=== PATIENT | female | born 1985 | race Caucasian/White ===

== ENCOUNTER 2022-03-12 16:42 | Outpatient (CLI) | payer SELFPAY ==
[2022-03-12 17:02] VITALS: BP 116/72; PULSE 108; PULSE 113; PULSE 114; TEMP 36.8; O2SAT 98
[2022-03-12 17:13] VITALS: BMI 26.6
--- NOTE | 2022-03-12 19:39 | OB.TRI.HP_ITS ---
HPI - General General Date of Admission: 03/12/22 Date of Service: 03/12/22 HPI Narrative DAVID SAUCEDO, is a 36 F who presents with vaginal spotting. 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 Vaginal spotting when she went to the bathroom and wiped. No bleeding since. NST reactive. Cervix with no signs of labor. Okay to discharge home
== END 2022-03-12 18:25 | disposition home or self-care (01) ==
LOC: WPOUT 16:49 → WP 16:49
PROVIDERS: Visit Provider Obstetrics & Gynecology
DX: O26.859 Spotting complicating pregnancy, unspecified trimester (principal); O09.30 Supervision of pregnancy with insufficient antenatal care, unspecified trimester; Z3A.00 Weeks of gestation of pregnancy not specified
CPT/HCPCS: 59025; 59050; 99218; G0378

== ENCOUNTER 2023-07-05 12:40 | Emergency (ER) | payer OTHER, SELFPAY ==
[2023-07-05 12:41] VITALS: BP 122/83; PULSE 98; RESP 14; TEMP 36.3; O2SAT 100; BMI 22.8
--- NOTE | 2023-07-05 13:37 | ED.VIS.FEGU ---
HPI HPI - Female History of Present Illness Chief Complaint: Vag Bld, Preg Informant: patient Bleeding Issue: Positive for Vaginal bleeding and Passing clots (Small) Onset: Weeks (2) Context: Gradual Onset Timing: Intermittent Current Severity: Spotting Maximum Severity: Spotting Associated Symptoms Associated Symptoms: Negative for Dysuria, Frequency or Hematuria Test: Positive Narrative Narrative: Patient presents with vaginal spotting that has been intermittent over the past 1-1/2 to 2 weeks. Patient states that she had passed some small clots. Patient states she contacted her kiln labourer who told her that that was normal. Patient states that she took a test this morning that was positive. Patient states she then came to the emergency department. Patient denies any pain. Patient denies any vaginal discharge. Patient denies any urinary complaints. PFSH PFSH Medical History no medical history no medical history Home Medications multivitamin 1 tablet PO.IVFORM DAILY supplement 03/12/22 [History Last Taken Unknown] Allergy/AdvReac Type Severity Reaction Status Date / Time Penicillins Allergy PT UNSURE Verified 07/05/23 12:43 OF REACTION Surgical History no surgical history no surgical history Social History Smoking Status: Never smoker ROS ROS ED Constitutional Constitutional ED: Denies chills or fever(s) Eyes Eyes: Denies blurry vision or change in vision ENT ENT ED: Denies rhinorrhea or sore throat Cardiovascular Cardiovascular: Denies chest pain or palpitations Respiratory/Chest Respiratory/Chest: Denies cough or dyspnea Gastrointestinal Gastrointestinal: Denies nausea or vomiting Genitourinary Genitourinary ED: Denies dysuria or hematuria Musculoskeletal Musculoskeletal: Denies back pain or neck pain Integumentary Denies abscess or rash Neurologic Neurologic: Denies headache(s) or weakness Allergic/Immunologic Allergic/Immunologic ED: Denies mouth swelling or urticaria EXAM Physical Exam Const Vital Signs: 07/05/23 12:41 Temperature 97.4 F L Temperature Source Temporal Pulse Rate 98 Respiratory Rate 14 Blood Pressure 122/83 H Blood Pressure Mean 96 Pulse Ox 100 Oxygen Delivery Method Room Air Positive well nourished and well developed General Appearance ED: well developed HEENT Reports moist mucous membranes Neck supple and no JVD Resp normal respiratory effort and clear to auscultation bilaterally Cardio regular rate and regular rhythm GI normal to inspection, nondistended, normoactive bowel sounds and non-tender Palpation: soft Extremity normal to inspection General Extremety ED: Negative for edema or tenderness General Extremity: Negative for edema Neuro oriented x3, CN's II-XII intact bilaterally and no sensory deficits noted Sensorium / Orientation: alert Motor Exam: strength 5/5 throughout Psych mental status grossly normal Skin no rashes or lesions noted MDM MDM MDM Narrative Medical decision making narrative: Differential diagnosis includes metrorrhagia, dysfunctional uterine bleeding, , ectopic , and urinary tract infection. CBC will be obtained to assess for leukocytosis and anemia. Basic metabolic profile will be obtained to assess for electrolyte abnormality and renal function. Urinalysis will be obtained to assess for urinary tract infection. Quantitative hCG will be obtained to assess for . Lab Data Attestation: I reviewed the patient's lab results. Lab results narrative: BC was reviewed and was within normal limits. Basic metabolic profile was reviewed and was within normal limits urinalysis was reviewed. There is no evidence of urinary tract infection. Occult blood was 250 with 25-50 red blood cells. Quantitative hCG was reviewed and was 7323. Labs: Laboratory Results - last 24 hr 07/05/23 07/05/23 13:53 14:10 WBC 4.3 L RBC 4.61 Hgb 13.8 Hct 42.1 MCV 91.3 MCH 29.9 MCHC 32.8 RDW Std Deviation 44.2 H RDW Coeff of Thaddeus 13.1 Plt Count 249 MPV 9.9 Immature Gran % (Auto) 0.200 Neut % (Auto) 72.5 H Lymph % (Auto) 20.2 [place] % (Auto) 5.9 Eos % (Auto) 0.7 Baso % (Auto) 0.5 Absolute Neuts (auto) 3.1 Absolute Lymphs (auto) 0.86 Nucleated RBC % 0 Sodium 138 Potassium 3.5 Chloride 108 H Carbon Dioxide 26.0 Anion Gap 4 L BUN 13 Creatinine 0.65 Estim Creat Clear Calc 90.99 Est GFR (MDRD) Af Amer 130 Est GFR (MDRD) Non-Af 108 BUN/Creatinine Ratio 20.1 H Glucose 126 H Calcium 8.9 HCG, Quant 7323 H Urine Color Yellow Urine Clarity Sl. Cloudy Urine pH 6.0 Ur Specific [place] 1.015 Urine Protein 15 H Urine Glucose (UA) Normal Urine Ketones 5 H Urine Occult Blood 250 H Urine Nitrite Negative Urine Bilirubin Negative Urine Urobilinogen Normal Ur Leukocyte Esterase 25 H Urine RBC 25-50 SEEN Urine WBC 0-5 SEEN Ur Squamous Epith Cells 0 SEEN Urine Bacteria 1+ Urine Mucus 0 SEEN Radiography Diagnostic Testing: Since the quantitative hCG was 7323, pelvic ultrasound was ordered to assess for viability of and to assess for ectopic . Treatment and Re-Evaluation Narrative: Patient was given IV fluids. Patient was advised of her findings. Patient was instructed on complete vaginal rest. Patient was instructed to follow-up with her GEAR MACHINE OPERATOR in 3 to 5 days. Patient was instructed return if worse in any way. Patient understood and was agreeable with the plan. All questions were answered. Discharge Plan Triage Chief Complaint: Vag Bld, Preg ED Provider: Arley Hogan Dx/Rx/DC Orders Clinical Impression: Threatened miscarriage, Instructions: ED Possible Miscarriage ... Prescriptions: No Action multivitamin 1 tablet PO.IVFORM DAILY Primary Care Provider: Care Physician,No Primary Referrals: Care Physician,No Primary [Primary Care Provider] - Activity Restrictions/Additional Instructions: Follow-up with your GEAR MACHINE OPERATOR kiln labourer in 2 days for repeat quantitative hCG levels. Your level here today was 7323. It should double in 2 days. Disposition Disposition: Home, Self Care
[2023-07-05] MEDS: 0.9% Normal Saline (1000mL) 1,000 ML 1000 ML IV (14:12)
[2023-07-05 14:15] LABS: Absolute Lymphocyte Count 0.86 X10^3/uL (0.83-4.51); Absolute Neutrophil Count 3.1 X10^3/uL (2.0-7.7); Basophil# 0.02 X10^3/uL; Basophil% 0.5 % (0-1); Eosinophil# 0.03 X10^3/uL; Eosinophils% 0.7 % (0-5); Hematocrit 42.1 % (37-47); Hemoglobin 13.8 g/dL (12.0-15.0); Lymphocyte # 0.86 X10^3/ul (0.83-4.51); Lymphocyte % 20.2 % (19-41); Mean Corp Hgb Conc 32.8 g/dL (32-36); Mean Corpuscular Hgb 29.9 pg (27.0-32.0); Mean Corpuscular Volume 91.3 fL (81-99); Mean Platelet Vol. 9.9 fl (6.2-12.0); Monocyte# 0.25 X10^3/uL; Monocyte% 5.9 % (0-10); NRBC Flagged by Analyzer 0 % (0-5); Neutrophil # 3.09 X10^3/uL (2.7-7.7); Neutrophil % 72.5 % (47-70); Platelet Count 249 K/mm3 (150-450); RBC Distribution Width CV 13.1 % (11.6-14.6); RBC Distribution Width SD 44.2 fl (35.1-43.9); Red Blood Count 4.61 M/mm3 (4.2-5.4); White Blood Count 4.3 K/mm3 (4.4-11.0)
[2023-07-05 14:18] LABS: Mucous, Urine 0 SEEN /hpf (<or=2+); Squamous Epithelial Cells - UA 0 SEEN /hpf (5-10)
[2023-07-05 14:22] LABS: Color, Urine Yellow (Yellow); Glucose, Dipstick Normal (Normal); Ketone-Dipstick 5 mg/dl (Negative); Leukocyte Esterase-Dipstick 25 /ul (Negative); Nitrite-Dipstick Negative (Negative); Occult Blood-Urine 250 /ul (Negative); Protein-Dipstick 15 mg/dl (Negative); Specific Gravity, Urine 1.015 (1.002-1.030); Urine Bilirubin Dipstick Negative (Negative); Urine Clarity Sl. Cloudy (Clear); Urine Urobilinogen Normal (Normal)
[2023-07-05 14:30] LABS: Anion Gap 4 (5-15); BUN 13 mg/dL (7-18); BUN/Creat Ratio 20.1 RATIO (10-20); Calcium,Total 8.9 mg/dL (8.5-10.1); Chloride 108 mmol/L (98-107); Creatinine, Serum 0.65 mg/dL (0.55-1.02); EST Glomerular Filtration Rate 108 mL/min (>60); Est Glom Filt Rate - Afr Amer 130 mL/min (>60); Estimated Creatinine Clearance 90.99 ml/min; Glucose 126 mg/dL (74-106); Potassium 3.5 mmol/L (3.5-5.1); Sodium Level 138 mmol/L (136-145)
[2023-07-05 14:34] LABS: Bacteria 1+ /hpf (None Seen); Red Blood Cells-Urine 25-50 SEEN /hpf (0-5); White Blood Cells 0-5 SEEN /hpf (0-5)
[2023-07-05 14:47] LABS: hCG Titer Quant., Serum 7323 mIU/mL (1-3)
--- NOTE | 2023-07-05 15:06 | US_ITS ---
We are attempting to reach an attending provider to discuss findings. An addendum with communication details will be sent when the communication is complete. STUDY: FIRST TRIMESTER OBSTETRICAL ULTRASOUND (TWINS) REASON FOR EXAM: Female, 38 years old. LMP: Unknown. Threatened miscarriage TECHNIQUE: Transvaginal TECHNICAL QUALITY: Adequate. COMPARISON: None. FINDINGS: There are two demonstrated intrauterine gestational sacs. The amniotic membrane cannot be visualized. The estimated gestation age (EGA) by LMP is unknown. BABY A The mean sac diameter (MSD) measure 1.35 cm, indicating an estimated gestational age (EGA) of 6 weeks, 1 days. There is a visualized yolk sac. The yolk sac measures 0.17 cm. There is visualization of an embryo. The crown-rump length (CRL) measures 0.19 cm, too small to calculate gestational age. No cardiac activity detected. The estimated gestation age (EGA) by US is 6 weeks, 1 days. BABY B A distinct labeled baby B sac is not visualized or measured. Only a single gestational sac is visualized. There is a visualized yolk sac. The yolk sac measures 0.23 cm. There is no demonstrated embryo ( pole). No cardiac activity detected. MATERNAL ANATOMY The uterus measures 10.0 x 6.0 x 6.7 cm. There is no demonstrated uterine fibroid. The cervix is closed. The right ovary measures 2.8 x 1.7 x 1.6 cm. There is a structure with internal echoes within the right ovary measuring 1.9 x 1.5 x 1.5 cm with peripheral flow which could represent a corpus luteum cyst. There is no visualized right adnexal mass or complex lesion. The left ovary measures 2.5 x 1.5 x 1.9 cm. There is no left ovarian cyst. There is no visualized left adnexal mass or complex lesion. There is trace fluid in the cul de sac. US/Transvaginal w/Preg US IMPRESSION: Only a single gestational sac is visualized with ultrasound age of 6 weeks and 1 day. There is a single pole and yolk sac seen, too small to calculate gestational age. There is a second yolk sac visualized, indeterminate significance. While findings may be due to very early gestation, cannot exclude demise. Recommend follow-up with serial hCG measurements and short interval ultrasound to document viability. Electronically Signed: Payton Costello MD at 17:17 EDT ,
[2023-07-05 17:51] VITALS: PULSE 64; RESP 16; O2SAT 99
== END 2023-07-05 17:52 | disposition home or self-care (01) ==
PROVIDERS: Emergency Provider Emergency Medicine; Visit Provider Emergency Medicine
DX: O20.0 Threatened abortion (principal); Z3A.00 Weeks of gestation of pregnancy not specified
CPT/HCPCS: 76817; 80048; 81001; 84702; 85025; 96360; 99283; J7030; A4216

== ENCOUNTER 2023-07-07 15:21 | Emergency (ER) | payer OTHER, SELFPAY ==
[2023-07-07 15:23] VITALS: BP 119/78; PULSE 100; RESP 16; TEMP 36.2; BMI 22.8
[2023-07-07 15:27] VITALS: BP 119/78; PULSE 100; RESP 16; TEMP 36.2
--- NOTE | 2023-07-07 15:59 | US_ITS ---
INDICATION: bleeding EXAMINATION: Ultrasound US OB less than 14 Weeks with Transvaginal TECHNIQUE: Transabdominal pelvic ultrasound was performed. Grayscale, spectral waveform, and color flow Doppler evaluation of the adnexa. COMPARISON: No relevant prior comparison study available LMP: [Unknown Beta-hCG: Unknown FINDINGS: UTERUS: 10.3 cm . RIGHT OVARY: 2.9 cm. Normal. LEFT OVARY: 2.5 cm. Normal. FREE FLUID: None. INTRAUTERINE GESTATIONAL SAC(s) (size/shape): Single. Size (Mean sac diameter) and shape. YOLK SAC: Identified POLE: Not identified ESTIMATED GESTATION AGE: 6 W, 2d. PLACENTA: Not visualized due to age. SUBCHORIONIC HEMORRHAGE: None. AMNIOTIC FLUID: Qualitatively normal. US/Transvaginal w/Preg US IMPRESSION: Single intrauterine . pole is not yet visualized. Estimated gestational age is 6 W, 2d.. Electronically Signed: Froilan Poole MD at 17:49 EDT ,
--- NOTE | 2023-07-07 16:01 | EDS_ITS ---
HPI HPI - Female History of Present Illness Chief Complaint: Vag Bld, Preg Informant: patient Narrative Narrative: Sent back to the ED by her PCP and her OB senior analyst [employer] intelligence for an ultrasound. G5, P4 6 weeks 3-day gestation by ultrasound. 6-week ago had some vaginal bleeding found to be . Intermittent spotting since then. Was seen 2 days ago in the emergency department with intrauterine gestational sac. Her hormone levels in the 7000 range. She had it rechecked today outpatient 9800, had respotting today with no clots. No pelvic pain. She called her doctors was told go to ED for recheck. No urinary symptoms. Records reviewed ultrasound intra gestational sac. Initial radiology report questionable twin gestation however on addendum single gestational sac with second 1 indeterminate significant. 6 weeks 1 day. PFSH PFSH Medical History no medical history Home Medications multivitamin 1 tablet PO.IVFORM DAILY supplement 03/12/22 [History Last Taken Unknown] Allergy/AdvReac Type Severity Reaction Status Date / Time Penicillins Allergy PT UNSURE Verified 07/07/23 15:22 OF REACTION Social History Smoking Status: Never smoker ROS ROS ED Constitutional Constitutional ED: Denies chills, fever(s) or sweats Eyes Eyes: Denies change in vision ENT ENT ED: Denies dysphagia or sore throat Cardiovascular Cardiovascular: Denies chest pain, leg edema, palpitations or racing heartbeat Respiratory/Chest Respiratory/Chest: Denies cough, dyspnea or dyspnea on exertion Gastrointestinal Gastrointestinal: Denies abdominal pain, diarrhea, nausea or vomiting Genitourinary Genitourinary ED: Reports other Details: Vaginal spotting ; Denies dysuria, hematuria or urinary frequency Musculoskeletal Musculoskeletal: Denies back pain, extremity pain or neck pain Integumentary Denies rash or wounds Neurologic Neurologic: Denies headache(s), paresthesias or weakness EXAM Physical Exam Const Vital Signs: 07/07/23 15:23 07/07/23 15:27 07/07/23 18:50 Temperature 97.2 F L 97.2 F L Temperature Source Temporal Temporal Pulse Rate 100 100 90 Respiratory Rate 16 16 Blood Pressure 119/78 119/78 120/74 Blood Pressure Mean 91 91 89 Pulse Ox 100 Positive well nourished and well developed General Appearance ED: well developed and NAD HEENT Reports moist mucous membranes normocephalic and atraumatic Eyes PERRL, EOMs intact bilaterally and conjunctivae normal General Eye ED: Yes normal appearance of both eyes Neck no lymphadenopathy and supple General: Negative for tenderness Chest Wall Chest: Negative for tenderness Resp normal respiratory effort and normal air movement Effort and Inspection: symmetric chest movement; Negative for respiratory distress Cardio regular rate, regular rhythm and no murmurs Peripheral Pulses: pulses 2+ throughout GI normal to inspection, nondistended, normoactive bowel sounds and non-tender Palpation: Negative for guarding or rebound tenderness present Back/Spine no CVA tenderness and no thoracic nor lumbar tenderness Extremity normal to inspection General Extremety ED: Negative for edema or tenderness General Extremity: Negative for edema Neuro oriented x3 and no sensory deficits noted Sensorium / Orientation: awake and alert Skin no rashes or lesions noted and no wounds MDM MDM MDM Narrative Medical decision making narrative: Interventions / MDM: Differential diagnosis: Threatened miscarriage, incomplete miscarriage, complete miscarriage Diagnosis considered but do not suspect: N/A My EKG interpretation: N/A Imaging independently reviewed and interpreted by myself: Transvaginal ultrasound: 6-week 2-day no current heart tone. External documents reviewed: N/A Test considered but not ordered:N/A ED course: Records reviewed there is no Rh. This is ordered. Her hCG level was thousand range today thousand 2 days ago. Ultrasound ordered for reevaluation as she is referred here. Blood type a positive. Ultrasound 6-week 2-day . She had no vaginal bleeding today. Discussed threatened miscarriage. There is no current heart tone. Discussed follow-up with her PCP and her OB team for recheck hormone levels and ultrasounds as needed. Pelvic rest discussed. All questions were answered. Re-evaluation: stable Disposition discussed with patient/family/significant other: Patient Case discussed with consulting clinician: N/A This note was generated with [employer] dictation software. It may contain incorrect words, spelling, and punctuation that were not noted in checking the note before signing. Lab Data Labs: Laboratory Results - last 24 hr 07/07/23 16:16 Urine Color Yellow Urine Clarity Clear Urine pH 7.0 Ur Specific [place] 1.010 Urine Protein Negative Urine Glucose (UA) Normal Urine Ketones Negative Urine Occult Blood Negative Urine Nitrite Negative Urine Bilirubin Negative Urine Urobilinogen Normal Ur Leukocyte Esterase Negative Urine RBC 0 SEEN Urine WBC 0 SEEN Ur Squamous Epith Cells 0-5 SEEN Urine Bacteria 0 SEEN Urine Mucus 0 SEEN Radiography Diagnostic Testing: Clinical Impression(s) from Imaging Studies Obstetrics Ultrasound 07/07/23 15:59 IMPRESSION: Single intrauterine . pole is not yet visualized. Estimated gestational age is 6 W, 2d.. Electronically Signed: Froilan Poole MD at 17:49 EDT , Discharge Plan Triage Chief Complaint: Vag Bld, Preg ED Provider: Rafael Ordoñez Dx/Rx/DC Orders Clinical Impression: Threatened miscarriage, Instructions: ED Possible Miscarriage ... Prescriptions: No Action multivitamin 1 tablet PO.IVFORM DAILY Primary Care Provider: Care Physician,No Primary Referrals: Care Physician,No Primary [Primary Care Provider] - Activity Restrictions/Additional Instructions: Your blood type is A positive. Ultrasound with 6 weeks 2-day . No current heart tone seen. Follow-up with your doctor and your OB team to continue monitoring with hormone levels and ultrasounds. Pelvic rest at this time. Disposition Disposition: Home, Self Care Discharge Date/Time: 07/07/23 18:54
[2023-07-07 16:20] LABS: Bacteria 0 SEEN /hpf (None Seen); Mucous, Urine 0 SEEN /hpf (<or=2+); Red Blood Cells-Urine 0 SEEN /hpf (0-5); White Blood Cells 0 SEEN /hpf (0-5)
[2023-07-07 16:32] LABS: Color, Urine Yellow (Yellow); Glucose, Dipstick Normal (Normal); Ketone-Dipstick Negative (Negative); Leukocyte Esterase-Dipstick Negative /ul (Negative); Nitrite-Dipstick Negative (Negative); Occult Blood-Urine Negative /ul (Negative); Protein-Dipstick Negative (Negative); Urine Bilirubin Dipstick Negative (Negative); Urine Clarity Clear (Clear); Urine Urobilinogen Normal (Normal)
[2023-07-07 17:01] LABS: Squamous Epithelial Cells - UA 0-5 SEEN /hpf (5-10)
[2023-07-07 18:50] VITALS: BP 120/74; PULSE 90; O2SAT 100
== END 2023-07-07 18:54 | disposition home or self-care (01) ==
PROVIDERS: Emergency Provider Emergency Medicine; Visit Provider Emergency Medicine
DX: O20.0 Threatened abortion (principal); O09.521 Supervision of elderly multigravida, first trimester; Z3A.01 Less than 8 weeks gestation of pregnancy
CPT/HCPCS: 76817; 81001; 86900; 86901; 99282

== ENCOUNTER → 2023-07-07 | Outpatient (CLI) | payer OTHER, SELFPAY ==
[2023-07-07 12:50] LABS: hCG Titer Quant., Serum 9684 mIU/mL (1-3)
== END | disposition home or self-care (01) ==
LOC: LAB 11:22
PROVIDERS: Visit Provider Family Medicine
DX: N93.9 Abnormal uterine and vaginal bleeding, unspecified (principal)
CPT/HCPCS: 36415; 84702

== ENCOUNTER 2023-07-18 10:38 | Emergency (ER) | payer OTHER, SELFPAY ==
[2023-07-18 10:39] VITALS: BP 113/83; PULSE 110; RESP 16; TEMP 36.8; O2SAT 99
[2023-07-18 10:41] VITALS: BMI 22.9
--- NOTE | 2023-07-18 11:04 | ED.VIS.FEGU ---
HPI <RODO Peoples - Last Filed: 07/18/23 15:08> HPI - Female History of Present Illness Chief Complaint: Vag Bld, Preg Narrative Narrative: 38 year old A1 female states she is approximately 7 weeks . She had some light spotting and was seen here on 07/07 and had an ultrasound confirming IUP. She still had intermittent spotting but developed heavier bleeding last night and this morning. She has changed her pad 3 times in 24 hours and has small clots. No fever chills, flank pain, abdominal pain, or vaginal discharge. 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 She takes no medication and denies blood thinners. No abdominal surgical history. PFSH <RODO Peoples - Last Filed: 07/18/23 15:08> [facility] Medical History (Updated 07/18/23 @ 14:54 by RODO Peoples) Home Medications multivitamin 1 tablet PO.IVFORM DAILY supplement 03/12/22 [History Last Taken Unknown] Allergy/AdvReac Type Severity Reaction Status Date / Time Penicillins Allergy PT UNSURE Verified 07/18/23 10:41 OF REACTION Social History Smoking Status: Never smoker ROS <RODO Peoples - Last Filed: 07/18/23 15:08> ROS ED ROS Narrative Constitutional: Negative for fever, chills, malaise. GI: Negative for abdominal pain, nausea, vomiting. : Negative for dysuria, frequency. EXAM <RODO Peoples - Last Filed: 07/18/23 15:08> Physical Exam Narrative Exam Narrative: CONST: Patient sitting in no acute distress. EYES: Normal inspection. NECK: Normal inspection. RESP: No respiratory distress, CTAB. CVS: Regular rate and rhythm, no murmur, no gallop. ABD: Soft and nontender, no guarding or rebound, nondistended. Pelvic: Normal external genitalia, small amount of blood oozing from the cervical os which does not appear widely open, no clots. SKIN: Color normal, no rash, warm, dry, intact. EXTREMITIES: Normal appearance, no pedal edema. NEURO: Oriented x4. PSYCH: Normal affect. Const Vital Signs: 07/18/23 10:39 Temperature 98.2 F Temperature Source Temporal Pulse Rate 110 H Respiratory Rate 16 Blood Pressure 113/83 H Blood Pressure Mean 93 Pulse Ox 99 Oxygen Delivery Method Room Air <Silvestre Dhillon MD - Last Filed: 07/20/23 15:05> Physical Exam Const Vital Signs: 07/18/23 10:39 Temperature 98.2 F Temperature Source Temporal Pulse Rate 110 H Respiratory Rate 16 Blood Pressure 113/83 H Blood Pressure Mean 93 Pulse Ox 99 Oxygen Delivery Method Room Air MDM <RODO Peoples - Last Filed: 07/18/23 15:08> MDM MDM Narrative Medical decision making narrative: A1 female is here with first trimester vaginal bleeding. She appears well and nontoxic. Heart rate 110 with otherwise normal vital signs. Abdomen is soft, nontender and pelvic exam showed blood in the vaginal vault and oozing from the os which does not appear widely open. Prior ultrasound on 07/07 showed IUP around 6 weeks 2 days and quant of 9684. Plan is to obtain repeat blood work and ultrasound. CBC is WNL. Hemoglobin is 15.0. hCG quant is trending up to 12,109. Blood type is A positive so RhoGAM is not indicated. US shows single intrauterine gestational sac containing poles estimated at 6 weeks, 5 days. There is no activity. Patient continues to have a small amount of bleeding so this is a threatened miscarriage. I spoke with on-call CLINICAL LAB CLERK, Dr. Dk Carrillo, who recommended follow-up in the office within 1 to 2 weeks. Return precautions were discussed and she was discharged in stable condition Lab Data Attestation: I reviewed the patient's lab results. Labs: Laboratory Results - last 24 hr 07/18/23 11:25 WBC 6.1 RBC 5.10 Hgb 15.0 Hct 45.3 MCV 88.8 MCH 29.4 MCHC 33.1 RDW Std Deviation 41.1 RDW Coeff of Thaddeus 12.7 Plt Count 267 MPV 10.0 Immature Gran % (Auto) 0.200 Neut % (Auto) 77.9 H Lymph % (Auto) 15.5 L [place] % (Auto) 5.3 Eos % (Auto) 0.8 Baso % (Auto) 0.3 Absolute Neuts (auto) 4.7 Absolute Lymphs (auto) 0.94 Nucleated RBC % 0 HCG, Quant 70392 H Urine Color Yellow Urine Clarity Sl. Cloudy Urine pH 6.0 Ur Specific [place] 1.015 Urine Protein 30 H Urine Glucose (UA) Normal Urine Ketones 15 H Urine Occult Blood 250 H Urine Nitrite Negative Urine Bilirubin Negative Urine Urobilinogen Normal Ur Leukocyte Esterase 25 H Urine RBC > 100 SEEN Urine WBC 0-5 SEEN Ur Squamous Epith Cells 0-5 SEEN Urine Bacteria 0 SEEN Urine Mucus 0 SEEN Blood Type A POSITIVE Radiography Diagnostic Testing: Clinical Impression(s) from Imaging Studies Obstetrics Ultrasound 07/18/23 11:07 IMPRESSION: Single intrauterine gestational sac containing 2 poles. No cardiac activity is seen at this time. Estimated gestational age is 6 weeks and 4 days and 6 weeks and 5 days. Electronically Signed: Naun Kingsley MD at 13:29 EDT , <Silvestre Dhillon MD - Last Filed: 07/20/23 15:05> MDM MDM Narrative Medical decision making narrative: A1 female is here with first trimester vaginal bleeding. She appears well and nontoxic. Heart rate 110 with otherwise normal vital signs. Abdomen is soft, nontender and pelvic exam showed blood in the vaginal vault and oozing from the os which does not appear widely open. Prior ultrasound on 07/07 showed IUP around 6 weeks 2 days and quant of 9684. Plan is to obtain repeat blood work and ultrasound. CBC is WNL. Hemoglobin is 15.0. hCG quant is trending up to 12,109. Blood type is A positive so RhoGAM is not indicated. US shows single intrauterine gestational sac containing poles estimated at 6 weeks, 5 days. There is no activity. Patient continues to have a small amount of bleeding so this is a threatened miscarriage. I spoke with on-call CLINICAL LAB CLERK, Dr. Dk Carrillo, who recommended follow-up in the office within 1 to 2 weeks. Return precautions were discussed and she was discharged in stable condition. Dr. Dhillon: I have personally performed a face to face assessment of the patient and have reviewed the RADHA Note. I performed a substantive portion of the visit including all aspects of the following. My travis findings include: History is vaginal bleeding with Exam is afebrile. Vital signs noted. Regular rate and rhythm. Lungs clear to auscultation bilaterally. Abdomen soft and nontender. Medical Decision Making: Check beta-hCG. Check ultrasound. Positive twin gestation with one gestational sac. Discussed with CLINICAL LAB CLERK. Discharged to follow-up in 1 to 2 weeks. Other additions or changes: [None] History & Record Review Discussion w/independent historian: Patient Additional record(s) reviewed:: Prior ED visit and Prior labs Lab Data Labs: Laboratory Results - last 24 hr 07/18/23 11:25 WBC 6.1 RBC 5.10 Hgb 15.0 Hct 45.3 MCV 88.8 MCH 29.4 MCHC 33.1 RDW Std Deviation 41.1 RDW Coeff of Thaddeus 12.7 Plt Count 267 MPV 10.0 Immature Gran % (Auto) 0.200 Neut % (Auto) 77.9 H Lymph % (Auto) 15.5 L [place] % (Auto) 5.3 Eos % (Auto) 0.8 Baso % (Auto) 0.3 Absolute Neuts (auto) 4.7 Absolute Lymphs (auto) 0.94 Nucleated RBC % 0 HCG, Quant 54649 H Urine Color Yellow Urine Clarity Sl. Cloudy Urine pH 6.0 Ur Specific [place] 1.015 Urine Protein 30 H Urine Glucose (UA) Normal Urine Ketones 15 H Urine Occult Blood 250 H Urine Nitrite Negative Urine Bilirubin Negative Urine Urobilinogen Normal Ur Leukocyte Esterase 25 H Urine RBC > 100 SEEN Urine WBC 0-5 SEEN Ur Squamous Epith Cells 0-5 SEEN Urine Bacteria 0 SEEN Urine Mucus 0 SEEN Blood Type A POSITIVE Radiography Diagnostic Testing: Clinical Impression(s) from Imaging Studies Obstetrics Ultrasound 07/18/23 11:07 IMPRESSION: Single intrauterine gestational sac containing 2 poles. No cardiac activity is seen at this time. Estimated gestational age is 6 weeks and 4 days and 6 weeks and 5 days. Electronically Signed: Naun Kingsley MD at 13:29 EDT , Discharge Plan Triage Chief Complaint: Vag Bld, Preg ED Midlevel Provider: Cher Calvo ED Provider: Silvestre Dhillon Dx/Rx/DC Orders Clinical Impression: Threatened miscarriage Instructions: ED Possible Miscarriage ... Prescriptions: No Action multivitamin 1 tablet PO.IVFORM DAILY Primary Care Provider: Care Physician,No Primary Referrals: Dk Carrillo MD [Med Staff - Active Staff] - Care Physician,No Primary [Primary Care Provider] - Activity Restrictions/Additional Instructions: Call the CLINICAL LAB CLERK office to have a follow-up appointment in 1 to 2 weeks. You may continue to bleed off and on. If you develop severe abdominal pain or severe bleeding return to the emergency room. Disposition Disposition: Home, Self Care Discharge Date/Time: 07/18/23 15:35
--- NOTE | 2023-07-18 11:07 | US_ITS ---
STUDY: FIRST TRIMESTER OBSTETRICAL ULTRASOUND (TWINS) REASON FOR EXAM: Female, 38 years old. LMP: May 26, 2023. bleeding TECHNIQUE: Transabdominal TECHNICAL QUALITY: Adequate. COMPARISON: None. FINDINGS: Single intrauterine gestational sac containing a yolk sac The amniotic membrane cannot be visualized. The estimated gestation age (EGA) by LMP is 7 weeks, 4 days. The estimated date of delivery (ZENAIDA) by LMP is March 01, 2024. BABY A The mean sac diameter (MSD) measure 1.9 cm, indicating an estimated gestational age (EGA) of 6 weeks, 6 days. There is no demonstrated yolk sac. There is visualization of an embryo. The crown-rump length (CRL) measures 0.4 cm, indicating an estimated gestational age (EGA) of 6 weeks, 2 days. No heart rate is seen at this time. The estimated gestation age (EGA) by US is 6 weeks, 4 days. The estimated date of delivery (ZENAIDA) by US is March 08, 2024. BABY B The mean sac diameter (MSD) measure 1.9 cm, indicating an estimated gestational age (EGA) of 6 weeks, 6 days. There is a visualized yolk sac. The yolk sac measures 4 mm. There is visualization of an embryo. The crown-rump length (CRL) measures 5 mm, indicating an estimated gestational age (EGA) of 6 weeks, 3 days. No heart rate is seen at this time. The estimated gestation age (EGA) by US is 6 weeks, 5 days. The estimated date of delivery (ZENAIDA) by US is March 07, 2024. MATERNAL ANATOMY The uterus measures 10.3 cm x 6.4 cm x 6 cm cm. There is no demonstrated uterine fibroid. The cervix is closed. The right ovary measures 2.6 x 1.9 cm x 1 cm. There is no right ovarian cyst. There is no visualized right adnexal mass or complex lesion. The left ovary measures 2.9 cm x 1.7 cm by 1.6 cm. There is no left ovarian cyst. There is no visualized left adnexal mass or complex lesion. There is no fluid in the cul de sac. US/Transvaginal w/Preg US IMPRESSION: Single intrauterine gestational sac containing 2 poles. No cardiac activity is seen at this time. Estimated gestational age is 6 weeks and 4 days and 6 weeks and 5 days. Electronically Signed: Naun Kingsley MD at 13:29 EDT ,
[2023-07-18 11:51] LABS: Absolute Lymphocyte Count 0.94 X10^3/uL (0.83-4.51); Absolute Neutrophil Count 4.7 X10^3/uL (2.0-7.7); Bacteria 0 SEEN /hpf (None Seen); Basophil# 0.02 X10^3/uL; Basophil% 0.3 % (0-1); Color, Urine Yellow (Yellow); Eosinophil# 0.05 X10^3/uL; Eosinophils% 0.8 % (0-5); Glucose, Dipstick Normal (Normal); Hematocrit 45.3 % (37-47); Ketone-Dipstick 15 mg/dl (Negative); Leukocyte Esterase-Dipstick 25 /ul (Negative); Lymphocyte # 0.94 X10^3/ul (0.83-4.51); Lymphocyte % 15.5 % (19-41); Mean Corp Hgb Conc 33.1 g/dL (32-36); Mean Corpuscular Hgb 29.4 pg (27.0-32.0); Mean Corpuscular Volume 88.8 fL (81-99); Monocyte# 0.32 X10^3/uL; Monocyte% 5.3 % (0-10); Mucous, Urine 0 SEEN /hpf (<or=2+); NRBC Flagged by Analyzer 0 % (0-5); Neutrophil # 4.72 X10^3/uL (2.7-7.7); Neutrophil % 77.9 % (47-70); Nitrite-Dipstick Negative (Negative); Occult Blood-Urine 250 /ul (Negative); Platelet Count 267 K/mm3 (150-450); Protein-Dipstick 30 mg/dl (Negative); RBC Distribution Width CV 12.7 % (11.6-14.6); RBC Distribution Width SD 41.1 fl (35.1-43.9); Specific Gravity, Urine 1.015 (1.002-1.030); Urine Bilirubin Dipstick Negative (Negative); Urine Clarity Sl. Cloudy (Clear); Urine Urobilinogen Normal (Normal); White Blood Count 6.1 K/mm3 (4.4-11.0)
[2023-07-18 11:59] LABS: Red Blood Cells-Urine > 100 SEEN /hpf (0-5); Squamous Epithelial Cells - UA 0-5 SEEN /hpf (5-10); White Blood Cells 0-5 SEEN /hpf (0-5)
[2023-07-18 12:38] VITALS: BP 124/72; PULSE 70; RESP 16; TEMP 37.1; O2SAT 99
[2023-07-18 12:47] LABS: hCG Titer Quant., Serum 12109 mIU/mL (1-3)
[2023-07-18 14:38] VITALS: BP 118/70; PULSE 78; RESP 18; TEMP 36.9; O2SAT 100
[2023-07-18 15:33] VITALS: BP 116/78; PULSE 76; RESP 16; TEMP 36.8; O2SAT 100
== END 2023-07-18 15:35 | disposition home or self-care (01) ==
PROVIDERS: Physician Assistant; Emergency Provider Emergency Medicine; Visit Provider Emergency Medicine
DX: O20.0 Threatened abortion (principal); O09.521 Supervision of elderly multigravida, first trimester; Z3A.01 Less than 8 weeks gestation of pregnancy
CPT/HCPCS: 76817; 81001; 84702; 85025; 86900; 86901; 99283; A4216

== ENCOUNTER 2023-11-30 10:30 | Outpatient (CLI) | payer OTHER, SELFPAY ==
[2023-11-30 10:42] VITALS: PULSE 108; O2SAT 96
[2023-11-30 10:47] VITALS: PULSE 110; O2SAT 96
[2023-11-30 11:05] VITALS: BP 139/93; PULSE 96; RESP 16; TEMP 36.8
[2023-11-30 11:06] VITALS: PULSE 98; O2SAT 96
[2023-11-30 11:21] VITALS: BP 121/77; PULSE 97
--- NOTE | 2023-11-30 11:23 | US_ITS ---
HISTORY: DECREASED MOVEMENT, VIABILITY. TECHNIQUE: Transabdominal and transvaginal pelvic ultrasound was performed with lowery scale and color Doppler evaluation. 134 images. COMPARISON: 07/18/2023. FINDINGS: UTERUS: 9 x 5 x 6.1 cm. Heterogeneous myometrium with a mildly hypervascular appearance anteriorly. Nabothian cyst noted in the cervix. ENDOMETRIAL THICKNESS: 11 mm. Intrauterine gestational sac no longer visualized. RIGHT OVARY: 1.9 x 3.5 x 4 cm. No adnexal masses. Prominent adnexal vessels. LEFT OVARY: 1.5 x 1.7 x 3.3 cm. No adnexal masses. Prominent adnexal vessels. FREE FLUID: None. US/Pelvic w/ Transvaginal IMPRESSION: No intrauterine identified. Electronically Signed: Simran Posey MD at 13:43 EST ,
[2023-11-30 14:30] LABS: Internal QC Validated? YES +Cl - CLEAR BKGD
[2023-11-30 14:31] LABS: Record Kit Lot#,Urine Preg HCG000071806
[2023-11-30 14:33] LABS: Pregnancy, Urine Negative Negative
--- NOTE | 2023-11-30 15:32 | OB.TRI.HP_ITS ---
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 Patient had an ultrasound at about 6 weeks which showed an intrauterine twin . She was having some vaginal bleeding but has not had an ultrasound since that time. Her community health program coordinator has had her on bedrest since May but the patient has continued to have monthly periods. Her only complaint is that she has gained more weight than she usually does during . In the last few days she has noted decreased movement in one of the babies and presents for decreased movement. [facility] Medical History (Updated 11/30/23 @ 15:[address] Raghavendra Smith MD) Home Medications multivitamin 1 tablet PO.IVFORM DAILY supplement 03/12/22 [History Last Taken Unknown] Allergy/AdvReac Type Severity Reaction Status Date / Time Penicillins Allergy PT UNSURE Verified 11/30/23 11:04 OF REACTION Social History Smoking Status: Never smoker Physical Exam Const alert, oriented x3, healthy appearing and well nourished General Appearance: cooperative and comfortable Exam Limitations: no limitations HEENT Head and Scalp: normocephalic Eyes PERRL Neck full ROM Resp normal respiratory effort Cardio regular rate GI normal to inspection, nondistended, normoactive bowel sounds, soft to palpation, non-tender, non-distended and no masses Extremity normal to inspection Neuro moves all extremities and no focal motor deficits Assessment & Plan (1) Decreased movement in , antepartum: (2) Complete miscarriage: COMMENT: Pelvic ultrasound was ordered and NO was visualized. The pelvic ultrasound was otherwise unremarkable. Subsequent urine test was negative. Ultrasound is consistent with a previous miscarriage probably around 6 to 8 weeks gestation based on history. PLAN: Discussed with the patient that she is no longer and probably has not been for several months and that she can return to normal activity. We discussed that her weight gain is likely due to bedrest for the last several months. We also discussed that she has probably returned to her normal menstruating cycles. Discussed patient's likely miscarriage at length with the patient which probably occurred at about 6 to 8 weeks gestation. Copies of the ultrasound pictures, negative urine test from today, and ultrasound report given to patient to share with her family and her community health program coordinator. We also discussed that she is likely fertile and if she wants to avoid she should consider some form of control now. She and her are considering vasectomy and plan an appointment with a physician to schedule this in the near future.
== END 2023-11-30 16:15 | disposition home or self-care (01) ==
LOC: WPOUT 10:33 → WP 10:33
PROVIDERS: Referring Provider Obstetrics & Gynecology; Visit Provider Obstetrics & Gynecology
DX: O03.9 Complete or unspecified spontaneous abortion without complication (principal)
CPT/HCPCS: 59050; 76830; 76856; 81025; 99221; G0378